=== PATIENT | female | born 1980 | race Caucasian/White ===

== ENCOUNTER 2017-02-03 09:30 | Observation (INO) | payer OTHER, BC ==
[~2017-02-03] VITALS: Ht 182.9 cm; Wt 103.1 kg
[~2017-02-03 09:30] MED LIST: ASPIRIN 81M81 MG/TA2 PO; ATIVAN 0.50.5 MG/TAB PO; CEFTIN 250250 MG/TAB PO; CELEBREX 200MG200 MG PO; CYMBALTA 60MG60 MG PO; HCTZ 25MG TAB25 MG PO; LIDODERM 5% PATC1 EA TP; LYRICA 100MG C100 M1 PO; MAG-OX 400400 MG/TAB PO; MULTI VITAMINS1 TAB PO; NUVARING VAG RING VG; PENNSAID 150 M150 ML TOP; PERCOCET 325 MG1 TA2 PO; SINGULAIR 110 MG/TAB PO; SOMA 350MG350 MG/TAB PO; TOPROL XL 25MG25 MG PO; TOPROL XL 50MG50 MG PO; XARELTO20 MG PO; XOPENEX HF0.045 MG/A IH; ZOFRAN8 MG PO; ZYRTEC10MGSGL
[2017-02-03] MEDS ORDERED: ASPIRIN 81M81 MG/TA2 PO (09:35)
[2017-02-03 10:01] LABS: BASO % 0.2 % (0.0-2.0); EOS % 0.2 % (0-4.0); GRAN % 88.1 % (42.2-75.2); LYMPH # 0.8 (1.2-3.4); MEAN CELL VOLUME 98 fl (80.0-100.0); MEAN CORPUSCULAR HGB CONC 32 g/dl (33.0-37.0); MEAN PLATELET VOLUME 9.9 fl (7.4-10.4); MONO # 0.2 (0.1-0.6); MONO % 1.9 % (1.7-9.3); PLATELET COUNT 264 K/mm3 (130-400); RED BLOOD COUNT 3.68 M/mm3 (4.10-5.30); REDCELL DISTRIBUTION WIDTH-CV 12.3 % (11.5-14.5)
[2017-02-03 10:03] LABS: HEMATOCRIT 36.2 % (37.0-47.0); HEMOGLOBIN 11.7 g/dl (12.5-16.0); MEAN CORPUSCULAR HEMOGLOBIN 32 pg (27.0-31.0)
[2017-02-03 10:04] LABS: ADJUSTED CALCIUM 8.8 mg/dL (8.4-10.2); ALANINE AMINOTRANSFERASE 78 U/L (9-52); ALBUMIN 4.2 gm/dL (3.5-5.0); ALKALINE PHOSPHATASE 71 U/L (50-136); ANION GAP 12 mmol/L (7-16); BILIRUBIN,TOTAL 0.7 mg/dL (0.0-1.0); BLOOD UREA NITROGEN 21 mg/dL (7-17); CARBON DIOXIDE 30 mmol/L (22-30); CHLORIDE 98 mmol/L (98-107); CREATININE, serum 1.07 mg/dL (0.52-1.25); GLUCOSE 131 mg/dL (74-106); INR 1.8 (0.8-3.0); LIPASE 26 U/L (23-300); POTASSIUM 3.5 mmol/L (3.4-5.0); PROTHROMBIN TIME 20.5 SECONDS (9.7-12.8); SODIUM 140 mmol/L (137-145); TOTAL PROTEIN 7.5 gm/dL (6.4-8.2)
[2017-02-03 10:07] LABS: PARTIAL THROMBOPLASTIN TIME 40.3 SECONDS (26.0-37.0)
[2017-02-03 10:23] LABS: TROPONIN-I < 0.012 ng/mL (0.000-0.034)
[2017-02-03 13:06] VITALS: BP 130/63; PULSE 63; TEMP 98.1
[2017-02-03 17:22] VITALS: BP 105/58; PULSE 65; TEMP 97.9
[2017-02-03 20:10] LABS: HEMOGLOBIN 11.8 g/dl (12.5-16.0)
[2017-02-03 22:30] VITALS: BP 98/51; PULSE 69; TEMP 97.9
[2017-02-04 02:00] VITALS: BP 95/53; PULSE 53; TEMP 98.2
[2017-02-04 06:08] VITALS: BP 98/55; PULSE 60; TEMP 97.5
[2017-02-04 10:47] LABS: HEMATOCRIT 34.7 % (37.0-47.0)
== END 2017-02-04 10:00 | disposition home or self-care (01) ==
LOC: COL.ER 09:30 → SURG 11:02
PROVIDERS: Emergency Medicine; Surgery
DX: S50.02XA Contusion of left elbow, initial encounter (principal); V48.5XXA Car driver injured in noncollision transport accident in traffic accident, initial encounter; Y92.410 Unspecified street and highway as the place of occurrence of the external cause; D68.2 Hereditary deficiency of other clotting factors
CPT/HCPCS: G0378; J2270; J3010; J7030; Q9967

== ENCOUNTER 2017-05-01 19:16 | Inpatient (IN) | payer OTHER ==
[~2017-05-01] VITALS: Ht 182.9 cm; Wt 104.0 kg
[2017-05-01] VITALS (22 sets, daily range): BP systolic 126; BP diastolic 69; PULSE 105; TEMP 98.2; O2SAT 96–100
[2017-05-01 20:15] LABS: BASO % 0.3 % (0.0-2.0); EOS # 0.3 (0.0-0.7); EOS % 2.5 % (0-4.0); GRAN # 8.9 (1.4-6.5); GRAN % 78.3 % (42.2-75.2); LYMPH # 1.3 (1.2-3.4); LYMPH % 11.3 % (20.0-51.0); MEAN CELL VOLUME 90 fl (80.0-100.0); MEAN CORPUSCULAR HGB CONC 34 g/dl (33.0-37.0); MEAN PLATELET VOLUME 9.8 fl (7.4-10.4); MONO # 0.8 (0.1-0.6); MONO % 7.2 % (1.7-9.3); PLATELET COUNT 317 K/mm3 (130-400); WHITE BLOOD COUNT 11.4 K/mm3 (4.8-10.8)
[2017-05-01 20:16] LABS: HEMOGLOBIN 11.9 g/dl (12.5-16.0); MEAN CORPUSCULAR HEMOGLOBIN 31 pg (27.0-31.0)
[2017-05-01 20:28] LABS: AMPHETAMINE URINE NEGATIVE; BARBITURATES URINE NEGATIVE; BENZODIAZEPINES URINE POSITIVE; BUPRENORPHINE URINE NEGATIVE; METHADONE URINE NEGATIVE; OPIATES URINE POSITIVE; OXYCODONE URINE POSITIVE; PHENCYCLIDINE URINE NEGATIVE; PROPOXYPHENE URINE NEGATIVE; THC CANNABINOIDS URINE NEGATIVE
[2017-05-01 20:28] LABS: ACETAMINOPHEN 26 ug/mL (10-30); ADJUSTED CALCIUM 8.9 mg/dL (8.4-10.2); ALANINE AMINOTRANSFERASE 74 U/L (9-52); ALBUMIN 4.3 gm/dL (3.5-5.0); ALKALINE PHOSPHATASE 112 U/L (50-136); ANION GAP 16 mmol/L (7-16); BILIRUBIN,TOTAL 0.6 mg/dL (0.0-1.0); BLOOD UREA NITROGEN 25 mg/dL (7-17); CALCIUM 9.1 mg/dL (8.4-10.2); CARBON DIOXIDE 25 mmol/L (22-30); CHLORIDE 95 mmol/L (98-107); CREATININE, serum 2.16 mg/dL (0.52-1.25); GLUCOSE 157 mg/dL (74-106); SODIUM 137 mmol/L (137-145); TOTAL PROTEIN 7.5 gm/dL (6.4-8.2)
[2017-05-01 20:42] LABS: POTASSIUM 2.9 mmol/L (3.4-5.0); SALICYLATE < 1.0 mg/dL
[2017-05-01] MEDS ORDERED: KEPPRA 500MG500 MG PO (20:47)
[2017-05-01] MEDS ORDERED: ALBUTEROL SULFAT3 M3 IH (20:49)
[2017-05-01] MEDS ORDERED: RT ADVAIR 128 DISKUS IH (20:49)
[2017-05-01] MEDS ORDERED: TOPAMAX50 MG PO (20:49)
[2017-05-01 20:51] LABS: PROLACTIN 141.7 ng/mL (3.0-18.6)
[2017-05-01 21:01] LABS: CREATINE KINASE 606 U/L (30-135)
[2017-05-01 21:01] LABS: INR 1.2 (0.8-3.0); PROTHROMBIN TIME 12.8 SECONDS (9.7-12.8)
[2017-05-01] MEDS ORDERED: FLEXERIL 1010 MG/TAB PO (21:22)
[2017-05-02] VITALS (363 sets, daily range): BP systolic 116–129; BP diastolic 42–92; PULSE 89–125; TEMP 97.2–98.4; O2SAT 91–100
[2017-05-02 00:46] LABS: MAGNESIUM 2.2 mg/dL (1.6-2.3)
[2017-05-02 01:28] LABS: POTASSIUM 2.9 mmol/L (3.4-5.0)
[2017-05-02 05:58] LABS: BASO % 0.5 % (0.0-2.0); EOS # 0.3 (0.0-0.7); EOS % 5.8 % (0-4.0); GRAN # 2.3 (1.4-6.5); GRAN % 52.3 % (42.2-75.2); LYMPH # 1.2 (1.2-3.4); LYMPH % 27.8 % (20.0-51.0); MEAN CELL VOLUME 92 fl (80.0-100.0); MEAN CORPUSCULAR HGB CONC 33 g/dl (33.0-37.0); MEAN PLATELET VOLUME 9.7 fl (7.4-10.4); MONO # 0.6 (0.1-0.6); MONO % 13.4 % (1.7-9.3); PLATELET COUNT 231 K/mm3 (130-400); RED BLOOD COUNT 3.38 M/mm3 (4.10-5.30); REDCELL DISTRIBUTION WIDTH-CV 13.2 % (11.5-14.5); WHITE BLOOD COUNT 4.3 K/mm3 (4.8-10.8)
[2017-05-02 06:00] LABS: HEMATOCRIT 31.2 % (37.0-47.0); HEMOGLOBIN 10.3 g/dl (12.5-16.0); MEAN CORPUSCULAR HEMOGLOBIN 30 pg (27.0-31.0)
[2017-05-02 06:09] LABS: CALCIUM 7.9 mg/dL (8.4-10.2); CREATININE, serum 1.12 mg/dL (0.52-1.25)
[2017-05-02 06:25] LABS: POTASSIUM 2.7 mmol/L (3.4-5.0)
[2017-05-02 14:12] LABS: CALCIUM 8.2 mg/dL (8.4-10.2); CREATININE, serum 1.38 mg/dL (0.52-1.25)
[2017-05-02 14:59] LABS: CALCIUM 7.9 mg/dL (8.4-10.2); CREATININE, serum 0.78 mg/dL (0.52-1.25); POTASSIUM 3.5 mmol/L (3.4-5.0)
[2017-05-03] VITALS (362 sets, daily range): BP systolic 109–129; BP diastolic 67–86; PULSE 82–96; TEMP 97.6–98.1; O2SAT 94–100
[2017-05-03 06:46] LABS: CALCIUM 7.9 mg/dL (8.4-10.2); CREATININE, serum 0.73 mg/dL (0.52-1.25); POTASSIUM 3.4 mmol/L (3.4-5.0)
[2017-05-03] MEDS ORDERED: KEPPRA 500MG500 MG PO (09:31)
[2017-05-03] MEDS ORDERED: CYMBALTA 60MG60 MG PO (09:31)
[2017-05-03] MEDS ORDERED: BACITRACIN TOPIC1 TU TOP (09:35)
[2017-05-04 00:05] VITALS: BP 125/77; PULSE 86; TEMP 97
[2017-05-04 04:25] VITALS: BP 138/87; PULSE 80
[2017-05-04 07:13] LABS: CALCIUM 8.2 mg/dL (8.4-10.2); CREATININE, serum 0.69 mg/dL (0.52-1.25); POTASSIUM 4.1 mmol/L (3.4-5.0)
[2017-05-04 08:20] VITALS: BP 129/90; PULSE 96; TEMP 97.6
[2017-05-04 12:36] VITALS: BP 147/95; PULSE 96; TEMP 98.1
[2017-05-04 20:00] VITALS: BP 131/85; PULSE 97; TEMP 98.2
[2017-05-04 20:21] VITALS: O2SAT 98
[2017-05-05 07:40] VITALS: BP 133/93; PULSE 73; TEMP 97.9
[2017-05-05 10:44] LABS: CALCIUM 8.9 mg/dL (8.4-10.2); CREATININE, serum 0.69 mg/dL (0.52-1.25); POTASSIUM 3.9 mmol/L (3.4-5.0)
[2017-05-05 12:31] LABS: ALBUMIN 3.7 gm/dL (3.5-5.0); TOTAL PROTEIN 6.8 gm/dL (6.4-8.2)
[2017-05-05 12:44] LABS: BILIRUBIN,DIRECT 0.5 mg/dL (0.0-0.4); BILIRUBIN,TOTAL 0.5 mg/dL (0.0-1.0)
== END 2017-05-05 15:55 | DRG 897 ==
LOC: COL.ER 19:16 → ICU 21:38
PROVIDERS: Emergency Medicine; Family Medicine; Nurse Practitioner Family
DX: F11.23 Opioid dependence with withdrawal (principal); N17.9 Acute kidney failure, unspecified; D68.52 Prothrombin gene mutation; R45.851 Suicidal ideations; E87.6 Hypokalemia; R56.9 Unspecified convulsions; F43.10 Post-traumatic stress disorder, unspecified; I10 Essential (primary) hypertension; G89.29 Other chronic pain; Z86.73 Personal history of transient ischemic attack (TIA), and cerebral infarction without residual deficits; Z91.14 Patient's other noncompliance with medication regimen
CPT/HCPCS: 90791-AI; 99223-AI; 99232-AI; A9585; J1953; J2060; J3360; J3480; J7030

== ENCOUNTER → 2017-07-21 | Outpatient (CLI) | payer OTHER ==
[~2017-07-21] MED LIST changes: +ALBUTEROL SULFAT3 M3 IH; +BACITRACIN TOPIC1 TU TOP; +FLEXERIL 1010 MG/TAB PO; +KEPPRA 500MG500 MG PO; +RT ADVAIR 128 DISKUS IH; +TOPAMAX50 MG PO
== END ==
LOC: ZCOL.LAB 10:39
DX: Z11.2 Encounter for screening for other bacterial diseases (principal)

== ENCOUNTER 2018-08-08 07:49 | Emergency (ER) | payer MEDICAID ==
[~2018-08-08] VITALS: Ht 180.3 cm; Wt 93.6 kg
[2018-08-08 07:53] VITALS: BP 110/72; TEMP 98
[2018-08-08 08:39] LABS: TRICYCLIC ANTIDEPRESS URINE POSITIVE
[2018-08-08 08:46] LABS: BASO % 0.4 % (0.0-2.0); EOS # 0.2 (0.0-0.7); EOS % 1.8 % (0-4.0); GRAN # 5.4 (1.4-6.5); GRAN % 64.8 % (42.2-75.2); LYMPH # 1.9 (1.2-3.4); LYMPH % 22.6 % (20.0-51.0); MEAN CELL VOLUME 95 fl (80.0-100.0); MEAN CORPUSCULAR HEMOGLOBIN 32 pg (27.0-31.0); MEAN CORPUSCULAR HGB CONC 34 g/dl (33.0-37.0); MEAN PLATELET VOLUME 9.2 fl (7.4-10.4); MONO # 0.8 (0.1-0.6); MONO % 9.8 % (1.7-9.3); PLATELET COUNT 225 K/mm3 (130-400); RED BLOOD COUNT 3.74 M/mm3 (4.10-5.30); REDCELL DISTRIBUTION WIDTH-CV 12.7 % (11.5-14.5)
[2018-08-08 08:47] LABS: HEMATOCRIT 35.6 % (37.0-47.0)
[2018-08-08 08:57] LABS: ALBUMIN 3.4 gm/dL (3.5-5.0); BILIRUBIN,TOTAL 0.2 mg/dL (0.0-1.0); CALCIUM 8.4 mg/dL (8.4-10.2); CREATININE, serum 0.79 mg/dL (0.52-1.25); PHOSPHOROUS 3.5 mg/dL (2.5-4.5); POTASSIUM 3.8 mmol/L (3.4-5.0); TOTAL PROTEIN 6.6 gm/dL (6.4-8.2)
[2018-08-08 09:00] LABS: COLLECTION METHOD CLEAN CATCH
[2018-08-08 09:11] LABS: PH 7 (5-8); SQUAMOUS EPITHELIAL 0-2 /hpf; URINE APPEARANCE Clear; URINE BACTERIA None Seen /hpf; URINE BILIRUBIN Negative (NEGATIVE); URINE BLOOD 1+ (NEGATIVE); URINE COLOR Yellow; URINE GLUCOSE Negative (NEGATIVE); URINE KETONE Negative (NEGATIVE); URINE LEUKOCYTE ESTERASE Negative (NEGATIVE); URINE NITRATE Negative (NEGATIVE); URINE PROTEIN(semi-quant) Negative (NEGATIVE); URINE RBC 20-50 /hpf; URINE UROBILINOGEN Negative (NEGATIVE)
[2018-08-08 09:13] LABS: PROLACTIN 140.2 ng/mL (3.0-18.6)
[2018-08-08 09:27] LABS: TSH w REFLEX 3.84 uIU/mL (0.465-4.680)
[2018-08-08] MEDS ORDERED: MACROBID 1100 MG/CAP PO (09:56)
[2018-08-08 10:16] VITALS: PULSE 79
== END 2018-08-08 10:20 | disposition home or self-care (01) ==
LOC: COL.ER 07:49
PROVIDERS: Nurse Practitioner
DX: G40.909 Epilepsy, unspecified, not intractable, without status epilepticus (principal); E16.2 Hypoglycemia, unspecified; E03.9 Hypothyroidism, unspecified; E87.1 Hypo-osmolality and hyponatremia; N39.0 Urinary tract infection, site not specified; Z86.73 Personal history of transient ischemic attack (TIA), and cerebral infarction without residual deficits; Z87.820 Personal history of traumatic brain injury; Z88.5 Allergy status to narcotic agent; Z88.8 Allergy status to other drugs, medicaments and biological substances; Z79.51 Long term (current) use of inhaled steroids
CPT/HCPCS: J7030

== ENCOUNTER 2018-09-10 14:20 | Observation (INO) | payer MEDICAID ==
[~2018-09-10] VITALS: Ht 180.3 cm; Wt 92.2 kg
[~2018-09-10 14:20] MED LIST changes: +MACROBID 1100 MG/CAP PO
[2018-09-10] MEDS ORDERED: ATIVAN 0.50.5 MG/TAB PO (14:50)
[2018-09-10] MEDS ORDERED: NEURONTIN300 MG/CAP PO (14:51)
[2018-09-10] MEDS ORDERED: CELEBREX 200MG200 MG PO (14:51)
[2018-09-10] MEDS ORDERED: DESYREL DIVIDO150 M1 PO (14:52)
[2018-09-10] MEDS ORDERED: SYNTHROID 0.0.025 MG PO (14:52)
[2018-09-10 14:53] LABS: BASO % 0.7 % (0.0-2.0); EOS # 0.1 (0.0-0.7); EOS % 1.3 % (0-4.0); GRAN # 4.1 (1.4-6.5); GRAN % 66.3 % (42.2-75.2); HEMATOCRIT 39.9 % (37.0-47.0); HEMOGLOBIN 13.2 g/dl (12.5-16.0); LYMPH # 1.4 (1.2-3.4); MEAN CELL VOLUME 97 fl (80.0-100.0); MEAN CORPUSCULAR HEMOGLOBIN 32 pg (27.0-31.0); MEAN CORPUSCULAR HGB CONC 33 g/dl (33.0-37.0); MEAN PLATELET VOLUME 9.5 fl (7.4-10.4); MONO # 0.5 (0.1-0.6); MONO % 8.5 % (1.7-9.3); PLATELET COUNT 254 K/mm3 (130-400); REDCELL DISTRIBUTION WIDTH-CV 12.5 % (11.5-14.5)
[2018-09-10] MEDS ORDERED: ZOFRAN 4MG T4 MG/TAB PO (14:53)
[2018-09-10 14:58] LABS: PROTHROMBIN TIME 11.7 SECONDS (9.7-12.8)
[2018-09-10 15:05] LABS: ALANINE AMINOTRANSFERASE 32 U/L (9-52); ALBUMIN 4.2 gm/dL (3.5-5.0); ALKALINE PHOSPHATASE 67 U/L (50-136); ANION GAP 6 mmol/L (7-16); AST,SGOT 21 U/L (15-37); BILIRUBIN,TOTAL 0.3 mg/dL (0.0-1.0); BLOOD UREA NITROGEN 21 mg/dL (7-17); CALCIUM 8.7 mg/dL (8.4-10.2); CARBON DIOXIDE 29 mmol/L (22-30); CHLORIDE 108 mmol/L (98-107); CREATININE, serum 0.87 mg/dL (0.52-1.25); GLUCOSE 69 mg/dL (74-106); POTASSIUM 4.2 mmol/L (3.4-5.0); SODIUM 143 mmol/L (137-145); TOTAL PROTEIN 7.4 gm/dL (6.4-8.2)
[2018-09-10 15:16] LABS: TROPONIN-I < 0.012 ng/mL (0.000-0.034)
[2018-09-10 20:10] VITALS: BP 140/87; PULSE 77; TEMP 97.7
[2018-09-10] MEDS ORDERED: NORCO 325 MG-101 TAB PO (20:51)
== END 2018-09-10 22:40 | disposition home or self-care (01) ==
LOC: COL.ER 14:20 → SURG 17:43
PROVIDERS: Family Medicine
DX: R51 Headache (principal); I10 Essential (primary) hypertension; G89.29 Other chronic pain; Q21.1 Atrial septal defect; E03.9 Hypothyroidism, unspecified; J45.909 Unspecified asthma, uncomplicated; Z88.0 Allergy status to penicillin; Z88.8 Allergy status to other drugs, medicaments and biological substances; Z88.5 Allergy status to narcotic agent; Z86.73 Personal history of transient ischemic attack (TIA), and cerebral infarction without residual deficits; Z82.49 Family history of ischemic heart disease and other diseases of the circulatory system
CPT/HCPCS: G0378; J1885; J2405; J3010; J7030; Q9967

== ENCOUNTER 2019-08-21 11:31 | Observation (INO) | payer MEDICAID ==
[~2019-08-21] VITALS: Ht 180.3 cm; Wt 98.5 kg
[~2019-08-21 11:31] MED LIST changes: +DESYREL DIVIDO150 M1 PO; +NEURONTIN300 MG/CAP PO; +NORCO 325 MG-101 TAB PO; +SYNTHROID 0.0.025 MG PO; +ZOFRAN 4MG T4 MG/TAB PO
[2019-08-21] MEDS ORDERED: GRALISE300 MG PO (11:58)
[2019-08-21] MEDS ORDERED: KEPPRA1000 MG PO (12:00)
[2019-08-21] MEDS ORDERED: KEPPRA 500MG500 MG PO (12:00)
[2019-08-21 12:26] LABS: BASO % 0.4 % (0.0-2.0); EOS # 0.2 (0.0-0.7); EOS % 3.2 % (0-4.0); GRAN # 4.2 (1.4-6.5); GRAN % 61.4 % (42.2-75.2); HEMATOCRIT 38.5 % (37.0-47.0); HEMOGLOBIN 12.7 g/dl (12.5-16.0); LYMPH # 1.7 (1.2-3.4); LYMPH % 24.8 % (20.0-51.0); MEAN CELL VOLUME 97 fl (80.0-100.0); MEAN CORPUSCULAR HEMOGLOBIN 32 pg (27.0-31.0); MEAN CORPUSCULAR HGB CONC 33 g/dl (33.0-37.0); MEAN PLATELET VOLUME 9.1 fl (7.4-10.4); MONO # 0.7 (0.1-0.6); MONO % 9.9 % (1.7-9.3); PLATELET COUNT 242 K/mm3 (130-400); RED BLOOD COUNT 3.97 M/mm3 (4.10-5.30); REDCELL DISTRIBUTION WIDTH-CV 12.3 % (11.5-14.5)
[2019-08-21 12:38] LABS: ALANINE AMINOTRANSFERASE 18 U/L (9-52); ALBUMIN 4.1 gm/dL (3.5-5.0); ALKALINE PHOSPHATASE 79 U/L (50-136); ANION GAP 9 mmol/L (7-16); AST,SGOT 40 U/L (15-37); BILIRUBIN,TOTAL 0.3 mg/dL (0.0-1.0); BLOOD UREA NITROGEN 25 mg/dL (7-17); CALCIUM 8.5 mg/dL (8.4-10.2); CARBON DIOXIDE 26 mmol/L (22-30); CHLORIDE 105 mmol/L (98-107); CREATININE, serum 1.03 (0.52-1.25); GLUCOSE 83 mg/dL (74-106); POTASSIUM 4.7 mmol/L (3.4-5.0); SODIUM 140 mmol/L (137-145); TOTAL PROTEIN 7.6 gm/dL (6.4-8.2)
[2019-08-21 12:41] LABS: ALCOHOL(ethanol),MEDICAL < 10 mg/dL
[2019-08-21 12:41] LABS: COLLECTION METHOD CLEAN CATCH
[2019-08-21 12:53] LABS: PH 5 (5-8); URINE APPEARANCE Hazy; URINE BACTERIA Rare /hpf; URINE BILIRUBIN Negative (NEGATIVE); URINE BLOOD 3+ (NEGATIVE); URINE COLOR Yellow; URINE GLUCOSE Negative (NEGATIVE); URINE KETONE Negative (NEGATIVE); URINE LEUKOCYTE ESTERASE 3+ (NEGATIVE); URINE NITRATE Negative (NEGATIVE); URINE PROTEIN(semi-quant) 1+ (NEGATIVE); URINE RBC >50 /hpf; URINE UROBILINOGEN Negative (NEGATIVE)
[2019-08-21 12:57] LABS: TRICYCLIC ANTIDEPRESS URINE POSITIVE
[2019-08-21 17:02] VITALS: BP 122/79; PULSE 95; TEMP 98.4
[2019-08-21] MEDS ORDERED: CYMBALTA 30MG30 MG PO (17:27)
[2019-08-21] MEDS ORDERED: JENCYCLA0.35 MG PO (17:34)
--- NOTE | 2019-08-21 18:08 | NUR ---
Pt up to room 312. Admission, med rec, allergies, completed. Pt is A&O. Denies dizziness at this time. Denies chest pain, SOB, N/V/D, palpitations. LAC INT IV flushes with no complications. Hospitalist aware of pt arrival and has seen patient. Seizure precautions in place. No other concerns voiced at this time. Call light within reach.
--- NOTE | 2019-08-21 19:21 | NUR ---
Neuro consulted, Bonifacio in to see pt. Pt was rocking back and forth, very anxious which was not present during admission questions. Pt now presents with clear speech but confused conversation, rocking back and forth in bed, losing track of conversation. Fall risk precautions in place, bed alarm on. Report given to MIKKI Carrion.
[2019-08-21 19:45] VITALS: BP 131/77; PULSE 108; TEMP 98.2
--- NOTE | 2019-08-21 21:39 | NUR ---
Report received from MIKKI Chauhan. Patient rocking back and forth in bed. Assessment complete. Patient appears to be very anxious. When out of bed, jumping while washing hands, bouncing around in bed. Patient denies pain. PM medications taken without problem. Patient requesting a snack. Fall precautions in place, bed alarm on, yellow gown on. Patient encouraged to use call light. Call light placed within reach.
--- NOTE | 2019-08-21 23:45 | NUR ---
Patient very anxious. Constantly rocking back and forth, jumping around, and bouncing around in bed. Patient somewhat agitated about her behavior. Continuously taking off tele stickers, replacing them as best nursing staff can. Patient is able to stand up and walk with a steady gait. Nursing staff always with patient when up out of bed. Speech is more logical and clearer once again.
[2019-08-22 01:27] VITALS: BP 137/89; PULSE 93; TEMP 98.9
[2019-08-22 03:15] VITALS: BP 120/81; PULSE 75; TEMP 98.9
--- NOTE | 2019-08-22 05:06 | NUR ---
Patient requesting to take a shower. Nursing staff stands in bathroom within eye sight of patient while patient showers. New tele stickers placed after finished showering. Patient given new gown. Now resting in bed. Bed alarm on. Call light within reach.
--- NOTE | 2019-08-22 05:57 | NUR ---
Patient resting in bed. Patient is resting in bed. Bed alarm on. Call light within reach.
--- NOTE | 2019-08-22 06:41 | NUR ---
Report given to MIKKI Chauhan
[2019-08-22 07:12] VITALS: BP 149/82; PULSE 86; TEMP 97.6
[2019-08-22 08:09] LABS: BASO # 0.1 (0.0-0.2); BASO % 0.8 % (0.0-2.0); EOS # 0.2 (0.0-0.7); EOS % 3.7 % (0-4.0); GRAN # 3.6 (1.4-6.5); GRAN % 59.7 % (42.2-75.2); HEMATOCRIT 38.1 % (37.0-47.0); HEMOGLOBIN 12.3 g/dl (12.5-16.0); LYMPH # 1.4 (1.2-3.4); LYMPH % 23.2 % (20.0-51.0); MEAN CELL VOLUME 98 fl (80.0-100.0); MEAN CORPUSCULAR HEMOGLOBIN 32 pg (27.0-31.0); MEAN CORPUSCULAR HGB CONC 32 g/dl (33.0-37.0); MEAN PLATELET VOLUME 9.4 fl (7.4-10.4); MONO # 0.7 (0.1-0.6); MONO % 12.3 % (1.7-9.3); PLATELET COUNT 243 K/mm3 (130-400); REDCELL DISTRIBUTION WIDTH-CV 12.5 % (11.5-14.5)
[2019-08-22 08:13] LABS: ALBUMIN 3.8 gm/dL (3.5-5.0); BILIRUBIN,TOTAL 0.4 mg/dL (0.0-1.0); CALCIUM 8.2 mg/dL (8.4-10.2); CREATININE, serum 0.67 (0.52-1.25); POTASSIUM 4.4 mmol/L (3.4-5.0)
--- NOTE | 2019-08-22 10:19 | NUR ---
Pt assessment completed and charted. Pt mildly anxious this morning, less rocking back and forth noted thus far. Conversation easily tracked at the moment. Pt pulled out LAC IV last night. New 20g RFA started, flushes with no complications. PRN ativan administered per JAN prior to MRI. Morning medications administered per JAN. Pt on tele and fall precautions. Pt c/o Lt shoulder pain and itching this morning. Pt noted to have scattered scabs on BLE and left upper arm, will discuss with hospitalist. MRI completed this morning. NO other concerns voiced at this time. Call light within reach, bed alarm on, pt encouraged to use call light for assistance.
[2019-08-22 12:41] VITALS: BP 134/80; PULSE 89; TEMP 97.9
--- NOTE | 2019-08-22 13:33 | NUR ---
MINDY met with the patient to discuss discharge plan. The patient lives alone in [place]. She states that she has no family that live nearby, but that she does have a brother, Wing Morel (ph#[phone]), that lives in [place]. She states that she talks to him off and on. She reports that her main support here in her friend, César Bill (ph#[phone]). She reports independence with ADLs and does not have any DME. The patient receives primary care and [facility] in [place], but states that she has been thinking about switching to someone else. She receives her medications at the [facility] in [place] and reports no difficulties obtaining her meds. The patient does not have advanced directives completed, but she was interested in obtaining a form for DPOA-HC. MINDY provided. The patient states that she plans to return back home or go to where ever the clinical team recommend upon discharge. During the above conversation, the patient was rocking her body back and forth and swinging around. The PA-C was notified of the behavior. MINDY to continue to follow to ensure a safe discharge.
--- NOTE | 2019-08-22 14:45 | NUR ---
SW in to visit with patient, this nurse in to place pod post op shoe for left toe fracture. Pt noted to be bouncing and rocking back and forth in bed increasingly more violent at times. Conversation all over the place and unorganized jumping from subject to subject. Hospitalist notified of behavior change and an order for PRN ativan put in. This nurse administered medication. Pt back in bed, bed alarm on, pt educated to use call light for assistance.
--- NOTE | 2019-08-22 15:24 | NUR ---
Patient very anxious and agitated during EEG. States she cannot hold still. Several notes made through exam. Patient stretching, dancing, singing, and moving around throughout entire exam. Patient refuses to leave her phone at bedside. Picked it up several times during testing. Patient kicked and punched strobe light during dancing and large movements in the bed. Made inappropriate comments including asking me to take part in a threesome, calling me a b, comparing me to past teachers, and asking who she should "kill" for making her do this. Then states she is "Just kidding." For majority of the test patient is pleasant, just will not cooperate and hold still. Romain Varner, DB2 DBA
[2019-08-22 15:27] VITALS: BP 142/94; PULSE 95; TEMP 98.4
--- NOTE | 2019-08-22 15:34 | NUR ---
Pt requesting shower. Diandra alicea assisted patient and monitored patient during shower, pt remained in eye contact. Pt back to bed, new tele stickers placed. Pt has calmed down some since receiving ativan.
--- NOTE | 2019-08-22 18:49 | NUR ---
Pt decided to leave AMA. House notified. Pt educated on risks of leaving AMA and benefits of staying. Pt verbalized understanding and AMA paper signed. Pt escorted out by friend. No other concerns voiced by patient.
== END 2019-08-22 18:53 | disposition left against medical advice (07) ==
LOC: COL.ER 11:31 → MEDICAL 15:18
PROVIDERS: Family Medicine; Physician Assistant; ADMIT Hospitalist
DX: R41.82 Altered mental status, unspecified (principal); I69.30 Unspecified sequelae of cerebral infarction; R26.9 Unspecified abnormalities of gait and mobility; R42 Dizziness and giddiness; R00.0 Tachycardia, unspecified; E03.9 Hypothyroidism, unspecified; Q21.1 Atrial septal defect; I10 Essential (primary) hypertension; G40.909 Epilepsy, unspecified, not intractable, without status epilepticus; G89.29 Other chronic pain; M25.512 Pain in left shoulder; M79.7 Fibromyalgia; N39.0 Urinary tract infection, site not specified; M25.572 Pain in left ankle and joints of left foot; J32.2 Chronic ethmoidal sinusitis; M54.9 Dorsalgia, unspecified; J45.909 Unspecified asthma, uncomplicated; Z79.899 Other long term (current) drug therapy; Z88.0 Allergy status to penicillin; Z82.49 Family history of ischemic heart disease and other diseases of the circulatory system
CPT/HCPCS: 99232-AI; A9585; G0378; J2060; J2310; J2360; J7030

== ENCOUNTER 2019-09-17 17:00 | Inpatient (IN) | payer MEDICAID ==
[~2019-09-17] VITALS: Ht 180.3 cm; Wt 90.5 kg
[~2019-09-17 17:00] MED LIST changes: +CYMBALTA 30MG30 MG PO; +GRALISE300 MG PO; +JENCYCLA0.35 MG PO; +KEPPRA1000 MG PO
[2019-09-17 17:50] LABS: BASO % 0.6 % (0.0-2.0); EOS # 0.2 (0.0-0.7); EOS % 3.4 % (0-4.0); GRAN # 2.9 (1.4-6.5); GRAN % 57.1 % (42.2-75.2); HEMOGLOBIN 11.6 g/dl (12.5-16.0); LYMPH # 1.4 (1.2-3.4); LYMPH % 28.3 % (20.0-51.0); MEAN CELL VOLUME 96 fl (80.0-100.0); MEAN CORPUSCULAR HEMOGLOBIN 32 pg (27.0-31.0); MEAN CORPUSCULAR HGB CONC 33 g/dl (33.0-37.0); MEAN PLATELET VOLUME 9.2 fl (7.4-10.4); MONO # 0.5 (0.1-0.6); MONO % 10.4 % (1.7-9.3); PLATELET COUNT 267 K/mm3 (130-400); RED BLOOD COUNT 3.67 M/mm3 (4.10-5.30); REDCELL DISTRIBUTION WIDTH-CV 12.1 % (11.5-14.5)
[2019-09-17 17:52] LABS: PROTHROMBIN TIME 23.9 SECONDS (9.7-12.8)
[2019-09-17 17:53] LABS: HEMATOCRIT 35.1 % (37.0-47.0)
[2019-09-17 17:54] LABS: PARTIAL THROMBOPLASTIN TIME 44.4 SECONDS (26.0-37.0)
[2019-09-17 17:58] LABS: ACETAMINOPHEN 29 ug/mL (10-30); ALANINE AMINOTRANSFERASE 50 U/L (9-52); ALKALINE PHOSPHATASE 85 U/L (50-136); ANION GAP 9 mmol/L (7-16); AST,SGOT 53 U/L (15-37); BILIRUBIN,TOTAL 0.3 mg/dL (0.0-1.0); BLOOD UREA NITROGEN 20 mg/dL (7-17); CALCIUM 8.9 mg/dL (8.4-10.2); CARBON DIOXIDE 25 mmol/L (22-30); CHLORIDE 103 mmol/L (98-107); CREATINE KINASE 208 U/L (30-135); CREATININE, serum 0.83 (0.52-1.25); GLUCOSE 83 mg/dL (74-106); LIPASE 31 U/L (23-300); POTASSIUM 4.1 mmol/L (3.4-5.0); SODIUM 137 mmol/L (137-145); TOTAL PROTEIN 7.3 gm/dL (6.4-8.2)
[2019-09-17 18:00] LABS: ALCOHOL(ethanol),MEDICAL < 10 mg/dL
[2019-09-17 18:13] LABS: TROPONIN-I < 0.012 ng/mL (0.000-0.035)
[2019-09-17 18:33] LABS: COLLECTION METHOD CLEAN CATCH
[2019-09-17 18:40] LABS: MUCOUS Present /lpf; PH 5 (5-8); SQUAMOUS EPITHELIAL 0-2 /hpf; URINE APPEARANCE Hazy; URINE BACTERIA Occasional /hpf; URINE BILIRUBIN Negative (NEGATIVE); URINE BLOOD 2+ (NEGATIVE); URINE COLOR Yellow; URINE GLUCOSE Negative (NEGATIVE); URINE KETONE Trace (NEGATIVE); URINE LEUKOCYTE ESTERASE 2+ (NEGATIVE); URINE NITRATE Positive (NEGATIVE); URINE PROTEIN(semi-quant) Negative (NEGATIVE); URINE RBC 20-50 /hpf; URINE UROBILINOGEN Negative (NEGATIVE)
[2019-09-17 18:58] LABS: TRICYCLIC ANTIDEPRESS URINE POSITIVE
[2019-09-17 19:45] LABS: ARTERIAL BLD GAS O2 SATURATION 93.8 % (92-100); ARTERIAL BLD GAS TCO2 CT 23.6; ARTERIAL BLOOD GAS BASE EXCESS -3.9 (-2-2); ARTERIAL BLOOD GAS HCO3 22.2 meq/L (22-26); ARTERIAL BLOOD GAS PCO2 44.3 mmHg (35-45); ARTERIAL BLOOD GAS PO2 69.4 mmHg (80-100); ARTERIAL BLOOD GAS pH 7.32 (7.35-7.45)
[2019-09-17 20:02] VITALS: BP 135/87; PULSE 108; TEMP 97.7
--- NOTE | 2019-09-17 20:10 | NUR ---
Pt arrived to room 353, transferred per stretcher by ED staff. Pt awake, a&o, cooperative c cares. Pt oriented to room, unit policies et current POC. Questions invited et answered, pt verbalizes understanding. Pt denies needs at this time. Call light in reach, will continue c admit process.
[2019-09-17] MEDS ORDERED: IBU800 M1 PO (20:23)
[2019-09-17] MEDS ORDERED: PERCOCET 325 MG1 TAB PO ×2 (20:23→23:12)
[2019-09-17] MEDS ORDERED: FERROUS SU325 MG/TAB PO (23:11)
[2019-09-17] MEDS ORDERED: ATIVAN 0.50.5 MG/TAB PO (23:13)
[2019-09-17] MEDS ORDERED: NEURONTIN300 MG/CAP PO (23:14)
[2019-09-17] MEDS ORDERED: PROAIR HFA0.09 MG/AC IH (23:15)
[2019-09-17 23:42] VITALS: BP 133/87; PULSE 100; TEMP 97.5
[2019-09-18 04:00] VITALS: BP 136/88; PULSE 94; TEMP 97.5
[2019-09-18 07:09] LABS: BASO % 0.7 % (0.0-2.0); EOS # 0.2 (0.0-0.7); GRAN # 2.3 (1.4-6.5); GRAN % 51.3 % (42.2-75.2); LYMPH # 1.4 (1.2-3.4); LYMPH % 31.1 % (20.0-51.0); MEAN CELL VOLUME 98 fl (80.0-100.0); MEAN CORPUSCULAR HEMOGLOBIN 31 pg (27.0-31.0); MEAN CORPUSCULAR HGB CONC 32 g/dl (33.0-37.0); MEAN PLATELET VOLUME 9.3 fl (7.4-10.4); MONO # 0.6 (0.1-0.6); MONO % 12.7 % (1.7-9.3); PLATELET COUNT 240 K/mm3 (130-400); REDCELL DISTRIBUTION WIDTH-CV 12.3 % (11.5-14.5)
[2019-09-18 07:18] LABS: HEMATOCRIT 34.2 % (37.0-47.0)
[2019-09-18 07:26] LABS: CALCIUM 8.1 mg/dL (8.4-10.2); CREATININE, serum 0.78 (0.52-1.25); POTASSIUM 4.1 mmol/L (3.4-5.0)
[2019-09-18 07:39] LABS: PROLACTIN 32.1 ng/mL (3.0-18.6)
[2019-09-18 08:06] VITALS: BP 128/75; PULSE 81; TEMP 97
--- NOTE | 2019-09-18 08:56 | NUR ---
Patient alert and oriented. Patient is awake and responds appropriately to all questions. Report having pain in her lower back and shoulders. This is a chronic pain for this patient. She rates pain 6/10. IV fluids infusing without difficultly. Denies any needs at this time
--- NOTE | 2019-09-18 09:56 | NUR ---
Called Dr. Valdovinos at this time. Prior EEG completed 08/22/19 during that admission. D/C EEG order at this time. Romain Varner, CAREER SERVICES REPRESENTATIVE
--- NOTE | 2019-09-18 11:28 | NUR ---
Recieved call from RT. Patient has just had an EEG on the 22 of August. [address] Dr. Valdovinos and he no longer wants to do an EEG this hospitalization. PADMINI Claudio made aware of Dr. Shaw orders.
[2019-09-18 11:57] VITALS: BP 114/72; PULSE 93; TEMP 97.8
--- NOTE | 2019-09-18 15:59 | NUR ---
Called to patients room; patient reports she feels that she is retaining fluids. This nurse spoke with Dr. Jules. New order recieved to discontinue IV fluids at this time. Patient resting. Denies any other needs
[2019-09-18 16:48] VITALS: BP 121/76; PULSE 93; TEMP 96.4
--- NOTE | 2019-09-18 16:54 | NUR ---
MINDY met with the patient to discuss a discharge plan. The patient lives alone in [place]. The patient denies use of DME and reports independence with ADLs. The patient receives medical care at [facility] in and patient receives medications from [facility] in with no difficulties. The patient does not have advanced directives in the EMR and was not interested in a DPOA-HC form. The patient plans to return home upon discharge with her friend providing transportation. There are no additional needs at this time.
--- NOTE | 2019-09-18 18:42 | NUR ---
Patient eating supper. Denies any needs at this time
--- NOTE | 2019-09-18 20:00 | NUR ---
Shift assessment complete. Pt resting in bed, awake, a&o, cooperative c cares. Pt reports chronic pain, denies need for intervention. Pt denies any other c/o. INT patent. Tele in place. Pt denies needs. Call light in reach, will continue to monitor.
[2019-09-18 21:17] VITALS: BP 137/93; PULSE 94; TEMP 97.5
[2019-09-19 00:38] VITALS: BP 137/89; PULSE 88; TEMP 98.7
[2019-09-19 07:28] VITALS: BP 144/88; PULSE 82; TEMP 98.4
[2019-09-19 07:50] LABS: BASO % 0.5 % (0.0-2.0); EOS # 0.2 (0.0-0.7); EOS % 4.3 % (0-4.0); GRAN # 2.3 (1.4-6.5); GRAN % 56.1 % (42.2-75.2); HEMOGLOBIN 11.7 g/dl (12.5-16.0); LYMPH # 1.2 (1.2-3.4); LYMPH % 28.8 % (20.0-51.0); MEAN CELL VOLUME 98 fl (80.0-100.0); MEAN CORPUSCULAR HEMOGLOBIN 31 pg (27.0-31.0); MEAN CORPUSCULAR HGB CONC 32 g/dl (33.0-37.0); MEAN PLATELET VOLUME 9.4 fl (7.4-10.4); MONO # 0.4 (0.1-0.6); MONO % 10.1 % (1.7-9.3); PLATELET COUNT 269 K/mm3 (130-400); RED BLOOD COUNT 3.74 M/mm3 (4.10-5.30); REDCELL DISTRIBUTION WIDTH-CV 12.4 % (11.5-14.5)
[2019-09-19 07:53] LABS: HEMATOCRIT 36.5 % (37.0-47.0)
[2019-09-19 07:57] LABS: CALCIUM 8.3 mg/dL (8.4-10.2); CREATININE, serum 0.56 (0.52-1.25); POTASSIUM 3.7 mmol/L (3.4-5.0)
[2019-09-19] MEDS ORDERED: KEPPRA1000 MG PO (09:49)
[2019-09-19] MEDS ORDERED: OMNICEF 300MG300 MG PO (09:50)
--- NOTE | 2019-09-19 13:15 | NUR ---
discharge instructions reviewed with the patient, instructed to follow up with PCP and Neuro as scheduled, discussed medication changed and provided script for antibiotic, dose of Rocephin was given prior to discharge, IV and tele removed, I personally escorted her out the door
== END 2019-09-19 13:16 | disposition home or self-care (01) | DRG 689 ==
LOC: COL.ER 17:00 → MEDICAL 19:23
PROVIDERS: Emergency Medicine; Nurse Practitioner Family; Physician Assistant; ADMIT Hospitalist
DX: N39.0 Urinary tract infection, site not specified (principal); G92 Toxic encephalopathy; I69.351 Hemiplegia and hemiparesis following cerebral infarction affecting right dominant side; T40.2X1A Poisoning by other opioids, accidental (unintentional), initial encounter; T42.4X1A Poisoning by benzodiazepines, accidental (unintentional), initial encounter; T39.091A Poisoning by salicylates, accidental (unintentional), initial encounter; T39.1X1A Poisoning by 4-Aminophenol derivatives, accidental (unintentional), initial encounter; R09.02 Hypoxemia; E03.9 Hypothyroidism, unspecified; I10 Essential (primary) hypertension; J45.909 Unspecified asthma, uncomplicated; M79.7 Fibromyalgia; G89.29 Other chronic pain; G40.909 Epilepsy, unspecified, not intractable, without status epilepticus; F19.982 Other psychoactive substance use, unspecified with psychoactive substance-induced sleep disorder; Z88.0 Allergy status to penicillin; Z88.8 Allergy status to other drugs, medicaments and biological substances
CPT/HCPCS: OP; 99222-AI; 99239; A4216; J0696; J2310; J7030